=== PATIENT | male | born 1955 | race Caucasian/White ===

== ENCOUNTER 2016-07-08 16:43 | Emergency (ER) | payer OTHER ==
[~2016-07-08] VITALS: Ht 185.4 cm; Wt 155.6 kg
[~2016-07-08 16:43] MED LIST: ALBINS/ INH; METF-384 PO; POTA-327 PO
[2016-07-08 17:01] VITALS: TEMP 36.9; Ht 185.4 cm; Wt 155.6 kg
[2016-07-08] MEDS ORDERED: ASPIRIN 81 MG CHEW PO STA (17:43)
[2016-07-08] MEDS ORDERED: NITROGLYCERIN 0.4 MG SL PER TAB CHARGE SL PRN (17:45)
[2016-07-08 17:46] VITALS: O2SAT 96
--- NOTE | 2016-07-08 18:01 | DIAGNOSTIC IMAGING REPORT ---
CHEST ONE VIEW PORTABLE CLINICAL HISTORY: Evaluate Fever/Sepsis pain COMPARISON STUDY: 04/17/2016 FINDINGS: The bones soft tissues and hemidiaphragms are normal. The cardiomediastinal silhouette is normal. The lungs are clear. The pulmonary vasculature is normal. IMPRESSION: Negative chest. Electronically signed by: Casey Miguel M.D. 07/08/2016 5:59 PM Dictated Date/Time: 07/08/2016 5:59 PM
[2016-07-08 18:03] LABS: BASO % 0.2 %; BASO ABS # 0.02 K/uL (0-0.2); COMPLETE YES; EOS % 3.4 %; HEMATOCRIT 39.7 % (42-52); IG% 0.4 %; LYMPH % 31.1 %; MEAN CELL VOLUME 86.5 fL (80-100); MEAN CORPUSCULAR HEMOGLOBIN 30.7 pg (25-34); MEAN CORPUSCULAR HGB CONC 35.5 g/dl (32-36); MEAN PLATELET VOLUME 10.9 fL (7.4-10.4); MONO % 5.2 %; NEUT % 59.7 %; PLATELET COUNT 218 K/uL (130-400); RED BLOOD COUNT 4.59 M/uL (4.7-6.1)
[2016-07-08 18:13] LABS: INR 0.9 (0.9-1.1); PARTIAL THROMBOPLASTIN RATIO 1.1; PROTHROMBIN TIME (PATIENT) 10.1 SECONDS (9.0-12.0)
[2016-07-08 18:16] LABS: ALT/SGPT 31 U/L (12-78); BLOOD UREA NITROGEN 21 mg/dl (7-18); BUN/CREATININE RATIO 14.9 (10-20); CALCIUM 9.2 mg/dl (8.5-10.1); CARBON DIOXIDE 27 mmol/L (21-32); CHLORIDE 100 mmol/L (98-107); GLUCOSE 344 mg/dl (70-99); POTASSIUM 3.4 mmol/L (3.5-5.1); SODIUM 138 mmol/L (136-145)
[2016-07-08 18:19] LABS: ALKALINE PHOSPHATASE 122 U/L (45-117); AST/SGOT 15 U/L (15-37)
[2016-07-08 18:20] VITALS: BP 136/91; O2SAT 93
[2016-07-08 18:27] LABS: BETA-HYDROXYBUTYRATE 1.33 mg/dL (0.2-2.81); CKMB/CK RATIO 1.4 (0-3.0)
[2016-07-08] MEDS ORDERED: SODIUM CHLORIDE 0.9% 500ML 500 ML IV STA (18:47)
--- NOTE | 2016-07-08 19:02 | EMERGENCY ROOM VISIT NOTE ---
History Report prepared by Marianna: Bret Perez Under the Supervision of: Dr. Zain Welsh D.O. First contact with patient: 17:37 Chief Complaint: PALPITATIONS Stated Complaint: HEART PALPITATIONS, WASHED OUT FEELING Nursing Triage Summary: pt to the ED with palpitations and dizziness for 2 days hx CHF c/o weakness History of Present Illness The patient is a 60 year old male who presents to the Emergency Room with complaints of intermittent chest palpitations beginning a couple days prior to arrival. He currently rates his discomfort as an 8/10 in severity. The patient associates fatigue, chest tightness, shortness of breath, increased thirst, and diaphoresis with the episodes of palpitations with today's symptoms. He states his symptoms worsen with exertion. The patient notes his first episode today began at 0700 and lasted for 45 minutes, and he experienced a second episode at 1030 that lasted 30 minutes. He states he has a history of hypertension, gout, CHF, and diabetes. The patient notes he takes an 81 mg aspirin every morning. He denies a history of heart attacks or strokes. The patient denies any recent illness, as well. 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 Review of Systems See HPI for pertinent positives & negatives. A total of 10 systems reviewed and were otherwise negative. Past Medical & Surgical Medical Problems: (1) CHF (congestive heart failure) (2) Chronic low back pain (3) Diabetes mellitus, type II (4) Diverticular disease of colon (5) Dyslipidemia (6) GERD (gastroesophageal reflux disease) (7) Gout (8) HTN (hypertension) (9) Paroxysmal atrial fibrillation (10) PSVT (paroxysmal supraventricular tachycardia) Surgical Problems: (1) H/O ventral hernia repair (2) History of appendectomy (3) History of cardiac cath (4) History of partial colectomy Family History FHx: cancer FHx: gallbladder disease Hypertension Kidney disease Kidney stones Social History Smoking Status: Former Smoker Alcohol Use: none Drug Use: none Marital Status: Housing Status: lives with significant other Occupation Status: disabled Current/Historical Medications Scheduled Allopurinol (Zyloprim), 300 MG PO QPM Aspirin (Aspir-81), 1 TAB PO DAILY Furosemide (Lasix), 40 MG PO QAM Metformin Hcl (Glucophage), 1,000 MG PO AMPM Metoprolol Succinate (Toprol Xl), 50 MG PO DAILY Nitroglycerin (Nitrostat), 0.4 MG UT PRN Potassium Chloride (Micro-K Ext Rel), 10 MEQ PO QAM Scheduled PRN Albuterol Sulf (Proventil 0.083% 2.5MG/3ML), 2.5 MG INH Q6H PRN for Wheezing Allergies Coded Allergies: BEE STING (Verified Allergy, Severe, ANAPHYLAXIS, 02/26/16) Aluminum Hydroxide (Verified Adverse Reaction, Mild, VOMITING, 02/26/16) Magnesium Hydroxide (Verified Adverse Reaction, Mild, VOMITING, 02/26/16) Simethicone (Verified Adverse Reaction, Mild, VOMITING, 02/26/16) Physical Exam Vital Signs Date Time Temp Pulse Resp B/P Pulse Ox O2 Delivery O2 Flow Rate FiO2 07/08/16 18:20 90 17 136/91 93 Room Air 07/08/16 17:58 79 07/08/16 17:46 96 Room Air 07/08/16 17:44 95 Room Air 07/08/16 17:01 36.9 76 22 167/102 95 Physical Exam CONSTITUTIONAL/VITAL SIGNS: Reviewed / noted above. GENERAL: Non-toxic in appearance. INTEGUMENTARY: Warm, dry, and [place]. HEAD: Normocephalic. EYES: without scleral icterus or trauma. ENT/OROPHARYNX: clear and moist. LYMPHADENOPATHY/NECK: Is supple without lymphadenopathy or meningismus. RESPIRATORY: Lungs clear and equal. CARDIOVASCULAR: Regular rate and rhythm. GI/ABDOMEN: Soft and nontender. No organomegaly or pulsatile mass. No rebound or guarding. Normal bowel sounds. EXTREMITIES: Warm and well perfused. BACK: No CVA tenderness. NEUROLOGICAL: Intact without focal deficits. PSYCHIATRIC: normal affect. MUSCULOSKELETAL: Normally developed with good muscle tone. Medical Decision & Procedures ER Provider Diagnostic Interpretation: X ray results and stated below per my interpretation and radiology interpretation. CHEST ONE VIEW PORTABLE CLINICAL HISTORY: Evaluate Fever/Sepsis pain COMPARISON STUDY: 04/17/2016 FINDINGS: The bones soft tissues and hemidiaphragms are normal. The cardiomediastinal silhouette is normal. The lungs are clear. The pulmonary vasculature is normal. IMPRESSION: Negative chest. Electronically signed by: Casey Miguel M.D. 07/08/2016 5:59 PM Laboratory Results 07/08/16 17:40 Red Blood Count 4.59, Mean Corpuscular Volume 86.5, Mean Corpuscular Hemoglobin 30.7, Mean Corpuscular Hemoglobin Concent 35.5, Mean Platelet Volume 10.9, Neutrophils (%) (Auto) 59.7, Lymphocytes (%) (Auto) 31.1, Monocytes (%) (Auto) 5.2, Eosinophils (%) (Auto) 3.4, Basophils (%) (Auto) 0.2, Neutrophils # (Auto) 5.36, Lymphocytes # (Auto) 2.80, Monocytes # (Auto) 0.47, Eosinophils # (Auto) 0.31, Basophils # (Auto) 0.02 07/08/16 17:40 Test 07/08/16 17:40 07/08/16 17:43 White Blood Count 9.00 K/uL (4.8-10.8) Red Blood Count 4.59 M/uL (4.7-6.1) Hemoglobin 14.1 g/dL (14.0-18.0) Hematocrit 39.7 % (42-52) Mean Corpuscular Volume 86.5 fL (80-100) Mean Corpuscular Hemoglobin 30.7 pg (25-34) Mean Corpuscular Hemoglobin Concent 35.5 g/dl (32-36) Platelet Count 218 K/uL (130-400) Mean Platelet Volume 10.9 fL (7.4-10.4) Neutrophils (%) (Auto) 59.7 % Lymphocytes (%) (Auto) 31.1 % Monocytes (%) (Auto) 5.2 % Eosinophils (%) (Auto) 3.4 % Basophils (%) (Auto) 0.2 % Neutrophils # (Auto) 5.36 K/uL (1.4-6.5) Lymphocytes # (Auto) 2.80 K/uL (1.2-3.4) Monocytes # (Auto) 0.47 K/uL (0.11-0.59) Eosinophils # (Auto) 0.31 K/uL (0-0.5) Basophils # (Auto) 0.02 K/uL (0-0.2) RDW Standard Deviation 40.6 fL (36.4-46.3) RDW Coefficient of Variation 12.9 % (11.5-14.5) Immature Granulocyte % (Auto) 0.4 % Immature Granulocyte # (Auto) 0.04 K/uL (0.00-0.02) Prothrombin Time 10.1 SECONDS (9.0-12.0) Prothromb Time International Ratio 0.9 (0.9-1.1) Activated Partial Thromboplast Time 29.5 SECONDS (21.0-31.0) Partial Thromboplastin Ratio 1.1 D-Dimer 340 ug/L FEU (0-500) Anion Gap 11.0 mmol/L (3-11) Est Creatinine Clear Calc Drug Dose 86.3 ml/min Estimated GFR () 62.4 Estimated GFR (Non- 53.8 BUN/Creatinine Ratio 14.9 (10-20) Calcium Level 9.2 mg/dl (8.5-10.1) Total Bilirubin 0.3 mg/dl (0.2-1) Direct Bilirubin < 0.1 mg/dl (0-0.2) Aspartate Amino Transf (AST/SGOT) 15 U/L (15-37) Alanine Aminotransferase (ALT/SGPT) 31 U/L (12-78) Alkaline Phosphatase 122 U/L (45-117) Total Creatine Kinase 124 U/L (39-308) Creatine Kinase MB 1.7 ng/ml (0.5-3.6) Creatine Kinase MB Ratio 1.4 (0-3.0) Troponin I < 0.015 ng/ml (0-0.045) Total Protein 7.6 gm/dl (6.4-8.2) Albumin 3.4 gm/dl (3.4-5.0) Lipase 120 U/L (73-393) Beta-Hydroxybutyric Acid 1.33 mg/dL (0.2-2.81) Thyroid Stimulating Hormone (TSH) 1.380 uIu/ml (0.300-4.500) Laboratory results as stated above per my review. Medications Administered Medications (Trade) Dose Ordered Sig/Tish Route Start Time Stop Time Status Last Admin Dose Admin Aspirin (Aspirin Chew) 324 mg NOW STAT PO 07/08/16 17:43 07/08/16 17:45 DC 07/08/16 18:14 324 MG Nitroglycerin (Nitrostat Tab) 0.4 mg PRN PRN SL 07/08/16 17:45 3 17:44 07/08/16 18:13 0.4 MG ECG Indication: palpitations Rate (beats per minute): 73 Rhythm: normal sinus Findings: no ectopy, other (no acute injury) ED Course 173: Previous medical records were reviewed. The patient was evaluated in room C6. A complete history and physical examination was performed. 174: Ordered Aspirin 324 mg PO. 174: Ordered Nitrostat Tab 0.4 mg SL. 184: Ordered Sodium Chloride 500 ml @ 999 mls/hr IV. Medical Decision the differential was considered includes acute myocardial infarction, acute coronary syndrome, myocarditis, pericarditis, pericardial effusions /tamponad, esophageal perforation, thoracic aortic dissection, pulmonary embolism, pneumonia, pneumothorax, pancreatitis, shingles, acute cholecystitis, perforated abdominal viscus. This is a 60-year-old male who presents to the ED with a chief complaint of palpitations for the past couple days as well as some dizziness and sweatiness and near-syncope noted by the nurses. The patient has had the symptoms off and on. He states that "my gas tank is empty". He feels thirsty. He feels dehydrated. His palpitations occurred between 7 and 8 AM as well as between 10 and 11 AM. He also describes tightness in his chest and some shortness of breath. He has a history of hypertension. His vital signs reveal hypertension. He is afebrile. His physical exam was unremarkable. A chest x- ray was negative for acute disease. CBC is normal. Complete metabolic panel was unremarkable. The BUN is 21 and a glucose is 344. EKG shows a normal sinus rhythm. Cardiac enzymes, lipase and thyroid are normal. D-Dimer is normal. The patient was given a nitroglycerin here to see if that would help the pain. It did not. His symptoms do not appear to be cardiac in nature. The patient's primary symptoms are that that he feels rundown. The exact cause of this is unclear at this time. He was advised of dehydration likely related to his hyperglycemia. He was told to follow-up with his family doctor in 1-2 days for recheck. He is return for any worsening or new concerns. His symptoms could be related to a early viral illness. He was offered observation although no clear indication for admission was found. He declined this. He feels comfortable going home. Impression Primary Impression: Malaise and fatigue Scribe Attestation The scribe's documentation has been prepared under my direction and personally reviewed by me in its entirety. I confirm that the note above accurately reflects all work, treatment, procedures, and medical decision making performed by me. Departure Information Dispostion Home / Self-Care Referrals Adan Barker D.O. (PCP) Patient Instructions My [facility] Additional Instructions Contact your doctor for follow-up. Drink plenty of fluids and get rest. Monitor blood sugars if possible. Follow-up with your doctor for further care and evaluation in 1-2 days. Return to the emergency department for worsening or new symptoms or any concerns. You have been examined and treated today on an emergency basis only. This is not a substitute for, or an effort to provide, complete comprehensive medical care. It is impossible to recognize and treat all injuries or illnesses in a single emergency department visit. It is therefore important that you follow up closely with your doctor. Call as soon as possible for an appointment.
[2016-07-08 19:07] VITALS: PULSE 86
[2016-07-08 19:22] LABS: URINE APPEARANCE CLEAR (CLEAR); URINE BILIRUBIN NEG (NEG); URINE COLOR YELLOW; URINE NITRITE NEG (NEG); URINE PH 5.5 (4.5-7.5); URINE SPECIFIC GRAVITY 1.023 (1.000-1.030); UROBILINOGEN NEG (NEG)
[2016-07-08 19:29] LABS: MANUAL MICROSCOPIC REQUIRED? NO; REVIEW REQ? NO
== END 2016-07-08 19:20 | disposition home or self-care (01) ==
LOC: C.EDB 16:44 → C.EDC 19:20
DX: R53.81 Other malaise (principal); R53.83 Other fatigue; I50.9 Heart failure, unspecified; G89.29 Other chronic pain; E11.9 Type 2 diabetes mellitus without complications; E78.5 Hyperlipidemia, unspecified; K21.9 Gastro-esophageal reflux disease without esophagitis; I10 Essential (primary) hypertension; I48.0 Paroxysmal atrial fibrillation; M10.9 Gout, unspecified; Z87.891 Personal history of nicotine dependence; Z79.82 Long term (current) use of aspirin

== ENCOUNTER 2016-09-01 07:18 | Emergency (ER) | payer OTHER ==
[~2016-09-01] VITALS: Ht 185.4 cm; Wt 154.3 kg
[~2016-09-01 07:18] MED LIST changes: -POTA-327 PO
[2016-09-01 07:21] VITALS: TEMP 36.7; Ht 185.4 cm; Wt 154.3 kg
--- NOTE | 2016-09-01 07:42 | EMERGENCY ROOM VISIT NOTE ---
History First contact with patient: 07:24 Chief Complaint: NECK PAIN Stated Complaint: NECK PAIN History of Present Illness The patient is a 61 year old male who presents to the Emergency Room with complaints of left sided lateral neck pain and headache. The patient states that the pain started yesterday. The patient states that the pain causes him to be short of breath. He states that he feels dizziness. He states that the pain is rated as 6/10. He reports palpitations and mild chest pain. He reports shortness of breath. He does have a significant history of chronic shortness of breath and palpitations. He denies any pain in the posterior neck. He denies any pain, numbness, tingling, weakness in the upper or lower extremities. He denies any abdominal pain, nausea or vomiting. The patient has seen cardiology and had catheterization most recently in 2010. He has also had stress echocardiogram within the last one year which was normal. The patient reports a history of chronic neck pain and disc issues in his neck but states this pain feels different. Review of Systems A 10 system review of systems was completed with positives and pertinent negatives listed in the HPI. Past Medical/Surgical History Medical Problems: (1) CHF (congestive heart failure) (2) Chronic low back pain (3) Diabetes mellitus, type II (4) Diverticular disease of colon (5) Dyslipidemia (6) GERD (gastroesophageal reflux disease) (7) Gout (8) HTN (hypertension) (9) Paroxysmal atrial fibrillation (10) PSVT (paroxysmal supraventricular tachycardia) Surgical Problems: (1) H/O ventral hernia repair (2) History of appendectomy (3) History of cardiac cath (4) History of partial colectomy Family History FHx: cancer FHx: gallbladder disease Hypertension Kidney disease Kidney stones Social History Smoking Status: Former Smoker Alcohol Use: none Drug Use: none Marital Status: Housing Status: lives with significant other Occupation Status: disabled Current/Historical Medications Scheduled Allopurinol (Zyloprim), 300 MG PO QPM Aspirin (Aspir-81), 1 TAB PO DAILY Furosemide (Lasix), 40 MG PO QAM Insulin Aspart 70/30 (Novolog Mix 70/30), 30 UNITS SC BID Metoprolol Succinate (Toprol Xl), 50 MG PO QPM Nitroglycerin (Nitrostat), 0.4 MG UT PRN Potassium Chloride (Micro-K Ext Rel), 10 MEQ PO QAM Allergies Coded Allergies: BEE STING (Verified Allergy, Severe, ANAPHYLAXIS, 09/01/16) Aluminum Hydroxide (Verified Adverse Reaction, Mild, VOMITING, 09/01/16) Magnesium Hydroxide (Verified Adverse Reaction, Mild, VOMITING, 09/01/16) Simethicone (Verified Adverse Reaction, Mild, VOMITING, 09/01/16) Physical Exam Vital Signs Date Time Temp Pulse Resp B/P Pulse Ox O2 Delivery O2 Flow Rate FiO2 09/01/16 09:54 65 16 139/86 96 Room Air 09/01/16 09:02 67 20 143/84 98 Room Air 09/01/16 07:21 36.7 81 20 136/88 96 Room Air Physical Exam VITALS: Vitals are noted on the nurse's note and reviewed by myself. Vital signs stable. Patient is afebrile. He is not tachycardic. or hypoxic. GENERAL:This is an obese 61-year-old male, in no acute distress, nondiaphoretic , well-developed well-nourished. SKIN: The skin was without rashes, erythema, edema, or bruising. There is no tenting of the skin. Capillary reflex less than 2 seconds. HEAD: Normocephalic atraumatic. EARS: External auditory canals clear, tympanic membranes pearly ritter without erythema or effusion bilaterally. EYES: Pupils equal round and reactive to light and accommodation. Conjunctivae without injection, sclerae without icterus. Extraocular movements intact. NOSE: Patent, turbinates without inflammation or discharge. MOUTH: Mucous membranes moist. Tonsils are not enlarged. Pharynx without erythema or exudate. Uvula midline. Airway patent. Tongue does not deviate. NECK: Supple without nuchal rigidity. No lymphadenopathy. No thyromegaly. No JVD. There are no obvious carotid bruits to auscultation. HEART: Heart sounds distant. Regular rate and rhythm without murmurs gallops or rubs. LUNGS: Clear to auscultation bilaterally without wheezes, rales or rhonchi. No retractions or accessory muscle use. ABDOMEN: Positive bowel sounds x 4. Soft, nontender, without masses or organomegaly. MUSCULOSKELETAL: No muscle atrophy, erythema, or edema noted. Full range of motion without joint tenderness in all extremities. Normal gait. Strength 5/5 throughout. NEURO: Patient was alert and oriented to person place and time. Cranial nerves II through XII grossly intact. Finger to nose intact. Negative pronator drift. Heel gardner testing intact. No focal neurological deficits. Medical Decision & Procedures ER Provider Diagnostic Interpretation: [~ rep ct add3]] NECK CTA HISTORY: Headache with left-sided neck pain. TECHNIQUE: Multiaxial CT images of the neck were performed following the intravenous administration of contrast to evaluate the major cervical vessels. Maximum intensity projection images were also obtained. All measurements were calculated based on NASCET criteria. COMPARISON STUDY: None. FINDINGS: The aortic arch and proximal great vessels are widely patent. There is no significant stenosis, occlusion, or dissection identified within the bilateral common carotid, internal carotid, or vertebral arteries. Small retention cysts within the right maxillary sinus. No cervical lymphadenopathy. The internal jugular veins are patent. IMPRESSION: No significant stenosis, occlusion, or dissection identified within the carotid or vertebral arteries. [~ rep ct add3]] CHEST ONE VIEW PORTABLE CLINICAL HISTORY: chest pain dyspnea COMPARISON STUDY: 07/08/2016 FINDINGS: Mild stable cardia megaly. Moderate prominence pulmonary vasculature. Diaphragms smooth. Costophrenic angles are sharp. IMPRESSION: Mild stable cardiomegaly. [~ rep ct add3]] HEAD CTA HISTORY: Headache headache left sided neck pain TECHNIQUE: Multiaxial CT images of the head were performed both before and after the intravenous administration of contrast to evaluate the major cerebral vessels. Maximum intensity projection images were also obtained. COMPARISON: None. FINDINGS: There is no mass, hematoma, midline shift, or acute infarct. Visualized intracranial internal carotid arteries, distal vertebral arteries, and basilar artery are widely patent. There is no significant stenosis, occlusion, or aneurysm seen within the bilateral ACAs, MCAs, or fish liver sorter. IMPRESSION: No significant stenosis, occlusion, or aneurysm within the [place]. Negative unenhanced CT scan of the brain Laboratory Results 09/01/16 07:45 Red Blood Count 4.36, Mean Corpuscular Volume 86.5, Mean Corpuscular Hemoglobin 30.3, Mean Corpuscular Hemoglobin Concent 35.0, Mean Platelet Volume 10.4, Neutrophils (%) (Auto) 57.8, Lymphocytes (%) (Auto) 32.6, Monocytes (%) (Auto) 5.3, Eosinophils (%) (Auto) 3.3, Basophils (%) (Auto) 0.3, Neutrophils # (Auto) 4.05, Lymphocytes # (Auto) 2.28, Monocytes # (Auto) 0.37, Eosinophils # (Auto) 0.23, Basophils # (Auto) 0.02 09/01/16 07:45 Test 09/01/16 07:45 09/01/16 07:48 White Blood Count 7.00 K/uL (4.8-10.8) Red Blood Count 4.36 M/uL (4.7-6.1) Hemoglobin 13.2 g/dL (14.0-18.0) Hematocrit 37.7 % (42-52) Mean Corpuscular Volume 86.5 fL (80-100) Mean Corpuscular Hemoglobin 30.3 pg (25-34) Mean Corpuscular Hemoglobin Concent 35.0 g/dl (32-36) Platelet Count 223 K/uL (130-400) Mean Platelet Volume 10.4 fL (7.4-10.4) Neutrophils (%) (Auto) 57.8 % Lymphocytes (%) (Auto) 32.6 % Monocytes (%) (Auto) 5.3 % Eosinophils (%) (Auto) 3.3 % Basophils (%) (Auto) 0.3 % Neutrophils # (Auto) 4.05 K/uL (1.4-6.5) Lymphocytes # (Auto) 2.28 K/uL (1.2-3.4) Monocytes # (Auto) 0.37 K/uL (0.11-0.59) Eosinophils # (Auto) 0.23 K/uL (0-0.5) Basophils # (Auto) 0.02 K/uL (0-0.2) RDW Standard Deviation 41.2 fL (36.4-46.3) RDW Coefficient of Variation 12.9 % (11.5-14.5) Immature Granulocyte % (Auto) 0.7 % Immature Granulocyte # (Auto) 0.05 K/uL (0.00-0.02) Prothrombin Time 10.4 SECONDS (9.0-12.0) Prothromb Time International Ratio 1.0 (0.9-1.1) Activated Partial Thromboplast Time 30.8 SECONDS (21.0-31.0) Partial Thromboplastin Ratio 1.2 Est Creatinine Clear Calc Drug Dose 118.8 ml/min Estimated GFR () 93.1 Estimated GFR (Non- 80.3 BUN/Creatinine Ratio 16.4 (10-20) Calcium Level 8.7 mg/dl (8.5-10.1) Total Bilirubin 0.4 mg/dl (0.2-1) Aspartate Amino Transf (AST/SGOT) 19 U/L (15-37) Alanine Aminotransferase (ALT/SGPT) 28 U/L (12-78) Alkaline Phosphatase 104 U/L (45-117) Total Creatine Kinase 150 U/L (39-308) Creatine Kinase MB 1.9 ng/ml (0.5-3.6) Creatine Kinase MB Ratio 1.3 (0-3.0) Troponin I < 0.015 ng/ml (0-0.045) Total Protein 7.2 gm/dl (6.4-8.2) Albumin 3.3 gm/dl (3.4-5.0) Globulin 3.9 gm/dl (2.5-4.0) Albumin/Globulin Ratio 0.8 (0.9-2) Beta-Hydroxybutyric Acid 0.89 mg/dL (0.2-2.81) Bedside Hemoglobin 13.6 g/dl (14.0-18.0) Bedside Hematocrit 40 % (42-52) Bedside D-Dimer 158 ng/mlFEU (0-450) Bedside Sodium 138 mEq/L (135-144) Bedside Potassium 3.6 mEq/L (3.3-5.0) Bedside Chloride 100 mEq/L (101-112) Bedside Total CO2 23 mEq/l (24-31) Anion Gap 20.0 mmol/L (16-25) Bedside Blood Urea Nitrogen 16 mg/dl (7-18) Bedside Creatinine 0.7 mg/dl (0.6-1.3) Bedside Glucose (other) 341 mg/dl (70-99) Bedside Ionized Calcium ([place]) 1.19 mmol/l (1.12-1.32) Bedside Troponin I 0.000 ng/ml (0-0.045) Medications Administered Medications (Trade) Dose Ordered Sig/Tish Route Start Time Stop Time Status Last Admin Dose Admin Morphine Sulfate (MoRPHine SULFATE INJ) 6 mg NOW STAT IV 09/01/16 07:44 09/01/16 07:45 DC 09/01/16 07:59 6 MG Procedure The patient was monitored on a washer blanket. They maintained a normal sinus rhythm without ectopy. ECG Indication: chest pain Rate (beats per minute): 73 Rhythm: normal sinus Findings: no acute ischemic change, other (incomplete right bundle-branch block ) Change: no significant change ED Course The patient was seen and examined. Previous visits were reviewed. The patient does not have a fever or leukocytosis. He does not have any significant electrolyte abnormalities. Troponin was not elevated. Glucose was elevated at 341. The patient is a diabetic. D-dimer was not elevated. INR was 1.0. Chest x-ray does not reveal any obvious abnormality CTA of the brain and neck were obtained and do not reveal any obvious vascular abnormality He was given 6 mg IV morphine with improvement in his pain The patient presents emergency Department with left-sided neck pain. The pain is worse with palpation. He underwent the above evaluation. There does not appear to be any carotid stenosis, aneurysm or dissection. The patient does have chronic shortness of breath, palpitations and chest pain. There may be some degree of underlying anxiety. The patient may have a sternocleidomastoid muscle strain. However, she should follow closely with his family doctor for further evaluation and management. He should return immediately with any chest pain, trouble breathing, numbness, tingling, weakness in the extremities. The patient was also seen and examined by who agrees with the assessment and treatment plan. Medical Decision DIFFERENTIAL DIAGNOSIS: Aortic dissection, myocarditis, pericarditis, cervical disc disease, costochondritis, herpes zoster, rib fracture, pleuritis, pneumonia , pulmonary embolus, tension pneumothorax, anxiety disorder, somatoform disorder , choledocholithiasis, status, esophagitis, esophageal spasm, esophageal reflux , esophageal rupture, pancreatitis, peptic ulcer disease, cardiac ischemia, ST elevation [place], acute coronary syndrome, arrhythmia, coronary artery vasospasm. vavular heart disease, coronary artery disease, among others. Impression Primary Impression: Neck pain Additional Impressions: Strain of sternocleidomastoid muscle Headache Departure Information Dispostion Home / Self-Care Condition GOOD Referrals Adan Barker D.O. (PCP) Patient Instructions My [facility] Additional Instructions Contact your family doctor today for a follow-up appointment later this week Return with any numbness, tingling, weakness, chest pain or generalized worsening symptoms Problem Qualifiers Additional Impressions: Strain of sternocleidomastoid muscle Encounter type: initial encounter Qualified Codes: S16.1XXA - Strain of muscle, fascia and tendon at neck level, initial encounter
[2016-09-01] MEDS ORDERED: MoRPHine SULFATE 10 MG/ML CARP/VIAL IV STA (07:44)
[2016-09-01] MEDS ORDERED: OPTIRAY 320 IV PRN (07:45)
[2016-09-01] MEDS ORDERED: NVLGI7030 SC (07:46)
--- NOTE | 2016-09-01 07:53 | EMERGENCY ROOM VISIT NOTE ---
ED Visit Note First contact with patient: 07:24 This Patient was discussed with the physician asset protection assistant, Dolly Kennedy PA-C. The pertinent historical and physical exam findings were confirmed. I agree with the studies ordered and with the interpretations of these studies. I agree with the disposition and care plan.
[2016-09-01 08:02] LABS: ISTAT CREATININE 0.7 mg/dl (0.6-1.3); ISTAT HEMOGLOBIN 13.6 g/dl (14.0-18.0); ISTAT IONIZED CALCIUM 1.19 mmol/l (1.12-1.32)
[2016-09-01 08:06] LABS: BASO % 0.3 %; BASO ABS # 0.02 K/uL (0-0.2); COMPLETE YES; EOS % 3.3 %; HEMATOCRIT 37.7 % (42-52); IG% 0.7 %; LYMPH % 32.6 %; LYMPH ABS # 2.28 K/uL (1.2-3.4); MEAN CELL VOLUME 86.5 fL (80-100); MEAN CORPUSCULAR HEMOGLOBIN 30.3 pg (25-34); MEAN PLATELET VOLUME 10.4 fL (7.4-10.4); MONO % 5.3 %; NEUT % 57.8 %; PLATELET COUNT 223 K/uL (130-400); RED BLOOD COUNT 4.36 M/uL (4.7-6.1)
--- NOTE | 2016-09-01 08:12 | DIAGNOSTIC IMAGING REPORT ---
CHEST ONE VIEW PORTABLE CLINICAL HISTORY: chest pain dyspnea COMPARISON STUDY: 07/08/2016 FINDINGS: Mild stable cardia megaly. Moderate prominence pulmonary vasculature. Diaphragms smooth. Costophrenic angles are sharp. IMPRESSION: Mild stable cardiomegaly. Electronically signed by: Casey Miguel M.D. 09/01/2016 8:10 AM Dictated Date/Time: 09/01/2016 8:10 AM
[2016-09-01 08:16] LABS: PARTIAL THROMBOPLASTIN RATIO 1.2; PROTHROMBIN TIME (PATIENT) 10.4 SECONDS (9.0-12.0)
[2016-09-01] MEDS ORDERED: ALLO300T2 PO (08:22)
[2016-09-01 08:24] LABS: ALT/SGPT 28 U/L (12-78); BLOOD UREA NITROGEN 16 mg/dl (7-18); BUN/CREATININE RATIO 16.4 (10-20); CALCIUM 8.7 mg/dl (8.5-10.1); CARBON DIOXIDE 27 mmol/L (21-32); CHLORIDE 102 mmol/L (98-107); GLUCOSE 341 mg/dl (70-99); POTASSIUM 3.5 mmol/L (3.5-5.1); SODIUM 138 mmol/L (136-145)
[2016-09-01 08:26] LABS: ALB/GLOB RATIO 0.8 (0.9-2); AST/SGOT 19 U/L (15-37)
[2016-09-01 08:33] LABS: ALKALINE PHOSPHATASE 104 U/L (45-117); BETA-HYDROXYBUTYRATE 0.89 mg/dL (0.2-2.81); CKMB/CK RATIO 1.3 (0-3.0)
--- NOTE | 2016-09-01 09:04 | DIAGNOSTIC IMAGING REPORT ---
HEAD CTA HISTORY: Headache headache left sided neck pain TECHNIQUE: Multiaxial CT images of the head were performed both before and after the intravenous administration of contrast to evaluate the major cerebral vessels. Maximum intensity projection images were also obtained. COMPARISON: None. FINDINGS: There is no mass, hematoma, midline shift, or acute infarct. Visualized intracranial internal carotid arteries, distal vertebral arteries, and basilar artery are widely patent. There is no significant stenosis, occlusion, or aneurysm seen within the bilateral ACAs, MCAs, or family services worker. IMPRESSION: No significant stenosis, occlusion, or aneurysm within the [place]. Negative unenhanced CT scan of the brain Electronically signed by: Casey Miguel M.D. 09/01/2016 9:03 AM Dictated Date/Time: 09/01/2016 8:59 AM
--- NOTE | 2016-09-01 09:07 | DIAGNOSTIC IMAGING REPORT ---
NECK CTA HISTORY: Headache with left-sided neck pain. TECHNIQUE: Multiaxial CT images of the neck were performed following the intravenous administration of contrast to evaluate the major cervical vessels. Maximum intensity projection images were also obtained. All measurements were calculated based on NASCET criteria. COMPARISON STUDY: None. FINDINGS: The aortic arch and proximal great vessels are widely patent. There is no significant stenosis, occlusion, or dissection identified within the bilateral common carotid, internal carotid, or vertebral arteries. Small retention cysts within the right maxillary sinus. No cervical lymphadenopathy. The internal jugular veins are patent. IMPRESSION: No significant stenosis, occlusion, or dissection identified within the carotid or vertebral arteries. Electronically signed by: Roland Barnard M.D. 09/01/2016 9:05 AM Dictated Date/Time: 09/01/2016 9:01 AM
[2016-09-01 09:54] VITALS: BP 139/86; PULSE 65; O2SAT 96
[2016-09-01] MEDS ORDERED: FRS/40 PO (10:05)
[2016-09-01] MEDS ORDERED: ASPI-232 PO (11:57)
[2016-09-01] MEDS ORDERED: NTRGSL/4 UT (13:37)
[2016-09-01] MEDS ORDERED: POTA10CA28 PO (18:22)
[2016-09-01] MEDS ORDERED: METO-217 PO (22:05)
[2017-04-13] MEDS ORDERED: ALBINS/ INH (14:00)
[2017-04-13] MEDS ORDERED: VNTHFA/IN INH (14:00)
== END 2016-09-01 10:07 | disposition home or self-care (01) ==
LOC: C.EDB 07:19
DX: S16.1XXA Strain of muscle, fascia and tendon at neck level, initial encounter (principal); X58.XXXA Exposure to other specified factors, initial encounter; I50.9 Heart failure, unspecified; E11.9 Type 2 diabetes mellitus without complications; E78.5 Hyperlipidemia, unspecified; K21.9 Gastro-esophageal reflux disease without esophagitis; I10 Essential (primary) hypertension; I48.0 Paroxysmal atrial fibrillation; Z87.891 Personal history of nicotine dependence; Z79.82 Long term (current) use of aspirin; Z79.4 Long term (current) use of insulin

== ENCOUNTER 2017-03-01 18:25 | Emergency (ER) | payer OTHER ==
[~2017-03-01] VITALS: Ht 185.4 cm; Wt 158.0 kg
[~2017-03-01 18:25] MED LIST changes: -ALBINS/ INH; +ALLO300T2 PO; +ASPI-232 PO; +FRS/40 PO; -METF-384 PO; +METO-217 PO; +NTRGSL/4 UT; +NVLGI7030 SC; +POTA10CA28 PO
[2017-03-01 18:26] VITALS: TEMP 36.7; Ht 185.4 cm; Wt 158.0 kg
[2017-03-01] MEDS ORDERED: ONDANSETRON INJ 2 MG/ML 2 ML VIAL IV STA (18:34)
--- NOTE | 2017-03-01 18:56 | EMERGENCY ROOM VISIT NOTE ---
History Report prepared by Marianna: Livia Joseph Under the Supervision of: Maldonado RiojasO. First contact with patient: 18:29 Chief Complaint: ABDOMINAL PAIN Stated Complaint: FEELS THOUGH TORE SOMETHING IN ABD History of Present Illness The patient is a 61 year old male who presents to the Emergency Room with complaints of constant diffuse abdominal pain beginning this afternoon. The patient states that he was moving a box around lunchtime. He had the box on a hand truck and went to step up. When he pulled the box up he states, "It felt like the bottom of my stomach ripped." He has had diffuse lower abdominal pain since that time. He feels bloated and his abdomen feels tight. The patient reports a loss of appetite. He rates his pain as a 6/10 in severity. He is also complaining of shortness of breath. He denies fevers, chills, nausea, vomiting, diarrhea, and constipation. He has had several hernia repairs in the past. Source of History: patient Onset: this afternoon Position: abdomen (lower) Symptom Intensity: 6/10 Quality: other (bloated and tight) Timing: constant Modifying Factors (Worsening): other (heavy lifting) Associated Symptoms: No fevers, No chills, No SOB, No nausea, No vomiting, No diarrhea Review of Systems See HPI for pertinent positives & negatives. A total of 10 systems reviewed and were otherwise negative. Past Medical & Surgical Medical Problems: (1) CHF (congestive heart failure) (2) Chronic low back pain (3) Diabetes mellitus, type II (4) Diverticular disease of colon (5) Dyslipidemia (6) GERD (gastroesophageal reflux disease) (7) Gout (8) HTN (hypertension) (9) Paroxysmal atrial fibrillation (10) PSVT (paroxysmal supraventricular tachycardia) Surgical Problems: (1) H/O ventral hernia repair (2) History of appendectomy (3) History of cardiac cath (4) History of partial colectomy Family History FHx: cancer FHx: gallbladder disease Hypertension Kidney disease Kidney stones Social History Smoking Status: Former Smoker Alcohol Use: none Drug Use: none Marital Status: Housing Status: lives with significant other Occupation Status: disabled Current/Historical Medications Scheduled Allopurinol (Zyloprim), 300 MG PO QPM Furosemide (Lasix), 40 MG PO QAM Insulin Aspart 70/30 (Novolog Mix 70/30), 35 UNITS SC BID Lisinopril/Hctz (Zestoretic 20MG/12.5MG), 1 TAB PO DAILY Metoprolol Succinate (Toprol Xl), 50 MG PO QPM Nitroglycerin (Nitrostat), 0.4 MG UT PRN Allergies Coded Allergies: BEE STING (Verified Allergy, Severe, ANAPHYLAXIS, 03/01/17) Aluminum Hydroxide (Verified Adverse Reaction, Mild, VOMITING, 03/01/17) Magnesium Hydroxide (Verified Adverse Reaction, Mild, VOMITING, 03/01/17) Simethicone (Verified Adverse Reaction, Mild, VOMITING, 03/01/17) Physical Exam Vital Signs Date Time Temp Pulse Resp B/P (MAP) Pulse Ox O2 Delivery O2 Flow Rate FiO2 03/01/17 20:50 73 20 140/81 94 Room Air 03/01/17 20:00 74 20 141/83 97 Room Air 03/01/17 19:20 84 03/01/17 18:26 36.7 91 22 136/77 95 Room Air Physical Exam GENERAL: Patient is awake, alert, very anxious and uncomfortable appearing. EYES: The conjunctivae are clear. The pupils are round and reactive. EARS, NOSE, MOUTH AND THROAT: The nose is without any evidence of any deformity. Mucous membranes are moist tongue is midline NECK: The neck is nontender and supple. RESPIRATORY: Normal respiratory effort is noted, diminished at bases, scant rales at both bases. CARDIOVASCULAR: Regular rate and rhythm noted there no murmurs rubs or gallops normal S1 normal S2 GASTROINTESTINAL: The abdomen is soft, moderately, diffusely tender. Guarding in suprapubic and periumbilical region. Due to body habitus, difficult to identify a definite hernia. MUSCULOSKELETAL/EXTREMITIES: There is no evidence of gross deformity full range of motion is noted in the hips and shoulders SKIN: Pedal edema bilaterally. There is no obvious evidence of any rash. There are no petechiae, pallor or cyanosis noted. NEUROLOGIC: Patient is awake alert and oriented x3 Medical Decision & Procedures ER Provider Diagnostic Interpretation: Radiology results as stated below per my review and radiologist interpretation: CHEST ONE VIEW PORTABLE HISTORY: 61 years-old Male ABDOMINAL PAIN/GI acute generalized abdominal pain. COMPARISON: Chest radiograph 09/01/2016 TECHNIQUE: Portable upright AP view of the chest FINDINGS: Cardiac silhouette is mildly enlarged, unchanged. No pneumothorax, pleural effusion or focal airspace consolidation. Subsegmental left basilar atelectasis. Bones are grossly intact. Degenerative changes involve the bilateral shoulders and spine. IMPRESSION: Subsegmental left basilar atelectasis without acute cardiopulmonary process. The above report was generated using voice recognition software. It may contain grammatical, syntax or spelling errors. Electronically signed by: Donny Clark M.D. 03/01/2017 7:12 PM Dictated Date/Time: 03/01/2017 7:11 PM ABD/PELVIS NO IV OR ORAL CONT HISTORY: 61 years-old Male pain acute generalized abdominal pain COMPARISON: CT 10/17/2015 TECHNIQUE: Multiple axial CT images of the abdomen and pelvis were obtained without contrast. A dose lowering technique was used consistent with the principals of BLANCA. FINDINGS: Minimal dependent bibasilar atelectasis. No pneumoperitoneum inferior cardiac chambers are unremarkable. Hepatomegaly with hepatic steatosis redemonstrated. Gallbladder, spleen, pancreas and right adrenal gland are unremarkable. 1.4 x 1.1 cm left adrenal adenoma is unchanged. Bilateral nonspecific perinephric limited or stranding is redemonstrated in addition to bilateral nephrolithiasis. Largest calculus on the right measures 4 mm and the largest in the left measures 2 mm. No ureteral calculi or hydronephrosis identified. Urinary bladder is partially collapsed. Prostate is unremarkable. Abdominal aorta is normal in course and caliber without aneurysm. No bulky adenopathy identified. Small duodenal diverticulum. No bowel obstruction or focal bowel wall thickening. Prior sigmoid colon resection with colocolonic anastomosis. Prior appendectomy. Prior ventral abdominal wall hernia repair. Bones appear intact. Facet arthropathy involves the lumbar spine, mild to moderate. IMPRESSION: 1. Bilateral nephrolithiasis redemonstrated without ureteral calculi or hydronephrosis. 2. Hepatomegaly with hepatic steatosis redemonstrated. 3.Prior sigmoid colon resection with colocolonic anastomosis. 4. Prior appendectomy. The above report was generated using voice recognition software. It may contain grammatical, syntax or spelling errors. Electronically signed by: Donny Clark M.D. 03/01/2017 8:00 PM Dictated Date/Time: 03/01/2017 7:55 PM Laboratory Results 03/01/17 19:00 Red Blood Count 4.73, Mean Corpuscular Volume 87.5, Mean Corpuscular Hemoglobin 29.8, Mean Corpuscular Hemoglobin Concent 34.1, Mean Platelet Volume 10.4, Neutrophils (%) (Auto) 62.7, Lymphocytes (%) (Auto) 28.6, Monocytes (%) (Auto) 5.6, Eosinophils (%) (Auto) 2.1, Basophils (%) (Auto) 0.3, Neutrophils # (Auto) 7.39, Lymphocytes # (Auto) 3.38, Monocytes # (Auto) 0.66, Eosinophils # (Auto) 0.25, Basophils # (Auto) 0.04 03/01/17 19:00 Test 03/01/17 19:00 03/01/17 19:11 03/01/17 19:15 White Blood Count 11.80 K/uL (4.8-10.8) Red Blood Count 4.73 M/uL (4.7-6.1) Hemoglobin 14.1 g/dL (14.0-18.0) Hematocrit 41.4 % (42-52) Mean Corpuscular Volume 87.5 fL (80-100) Mean Corpuscular Hemoglobin 29.8 pg (25-34) Mean Corpuscular Hemoglobin Concent 34.1 g/dl (32-36) Platelet Count 257 K/uL (130-400) Mean Platelet Volume 10.4 fL (7.4-10.4) Neutrophils (%) (Auto) 62.7 % Lymphocytes (%) (Auto) 28.6 % Monocytes (%) (Auto) 5.6 % Eosinophils (%) (Auto) 2.1 % Basophils (%) (Auto) 0.3 % Neutrophils # (Auto) 7.39 K/uL (1.4-6.5) Lymphocytes # (Auto) 3.38 K/uL (1.2-3.4) Monocytes # (Auto) 0.66 K/uL (0.11-0.59) Eosinophils # (Auto) 0.25 K/uL (0-0.5) Basophils # (Auto) 0.04 K/uL (0-0.2) RDW Standard Deviation 41.8 fL (36.4-46.3) RDW Coefficient of Variation 13.0 % (11.5-14.5) Immature Granulocyte % (Auto) 0.7 % Immature Granulocyte # (Auto) 0.08 K/uL (0.00-0.02) Prothrombin Time 10.7 SECONDS (9.0-12.0) Prothromb Time International Ratio 1.0 (0.9-1.1) Activated Partial Thromboplast Time 29.2 SECONDS (21.0-31.0) Partial Thromboplastin Ratio 1.1 Anion Gap 9.0 mmol/L (3-11) Est Creatinine Clear Calc Drug Dose 92.6 ml/min Estimated GFR () 67.8 Estimated GFR (Non- 58.5 BUN/Creatinine Ratio 14.4 (10-20) Calcium Level 9.7 mg/dl (8.5-10.1) Total Bilirubin 0.3 mg/dl (0.2-1) Direct Bilirubin < 0.1 mg/dl (0-0.2) Aspartate Amino Transf (AST/SGOT) 14 U/L (15-37) Alanine Aminotransferase (ALT/SGPT) 22 U/L (12-78) Alkaline Phosphatase 83 U/L (45-117) Total Creatine Kinase 235 U/L (39-308) Creatine Kinase MB 3.6 ng/ml (0.5-3.6) Creatine Kinase MB Ratio 1.5 (0-3.0) Troponin I < 0.015 ng/ml (0-0.045) Pro-B-Type Natriuretic Peptide 26 pg/ml (0-900) Total Protein 7.8 gm/dl (6.4-8.2) Albumin 3.8 gm/dl (3.4-5.0) Lipase 86 U/L (73-393) Bedside Lactic Acid Venous 0.94 mmol/L (0.90-1.70) Urine Color DK YELLOW Urine Appearance CLEAR (CLEAR) Urine pH 5.0 (4.5-7.5) Urine Specific [place] 1.025 (1.000-1.030) Urine Protein NEG (NEG) Urine Glucose (UA) NEG (NEG) Urine Ketones TRACE (NEG) Urine Occult Blood NEG (NEG) Urine Nitrite NEG (NEG) Urine Bilirubin NEG (NEG) Urine Urobilinogen NEG (NEG) Urine Leukocyte Esterase NEG (NEG) Laboratory results per my review. Medications Administered Medications (Trade) Dose Ordered Sig/Tish Route Start Time Stop Time Status Last Admin Dose Admin Ondansetron HCl (Zofran Inj) 4 mg NOW STAT IV 03/01/17 18:34 03/01/17 18:36 DC 03/01/17 19:10 4 MG Morphine Sulfate (MoRPHine SULFATE INJ) 4 mg Q15M PRN IV 03/01/17 18:45 03/01/17 21:11 DC 03/01/17 20:05 4 MG Ondansetron HCl (ZOFRAN ODT 4MG Home Pack) 1 homepack UD ONCE PO 03/01/17 20:30 03/01/17 20:31 DC 03/01/17 20:50 1 HOMEPACK Oxycodone HCl (Roxicodone Immediate Rel 5MG Home Pack) 1 homepack UD ONCE PO 03/01/17 20:30 03/01/17 20:31 DC 03/01/17 20:50 1 HOMEPACK ECG Indication: abdominal pain Rate (beats per minute): 80 Rhythm: normal sinus Findings: no acute ischemic change, no ectopy Comparison ECG Date: 09/01/16 Change: no significant change ED Course 1828: The patient was evaluated in room C10. A complete history and physical examination were performed. 1833: Zofran 4 mg IV 1844: Morphine sulfate 4 mg IV - PRN 2026: I reassessed the patient at this time. He is feeling better and resting comfortably. I discussed the results and treatment plan with the patient. I answered all pertaining questions that he had. He expressed understanding and verbalized agreement. The patient will be discharged home. 2030: Oxycodone HCl 1 homepack PO, Zofran 4 mg PO 1 homepack. Medical Decision Differential diagnosis: Etiologies such as appendicitis, diverticulitis, PUD, biliary pathology, UTI, pancreatitis, obstruction, mesenteric ischemia, aortic pathology, infections, inflammatory bowel disease, renal colic, as well as others were entertained. Nursing notes reviewed. The patient is a 61-year-old male who presented to the emergency department for an evaluation of significant lower abdominal tenderness. The patient states that he was doing heavy lifting when he felt a tearing sensation in his lower abdomen. Because of his size it was difficult to evaluate for hernia so CT abdomen and pelvis was obtained. I discussed the patient's laboratory and radiographic studies with him. He was treated with IV pain medication and IV antiemetics. On subsequent reevaluation he was feeling much better. At this time I feel this is likely consistent with a muscle injury to the abdominal wall. For this reason he was told to start taking a laxative especially if he was going to take strong pain medication. He was encouraged to follow-up with his primary care physician as soon as possible. He was also encouraged to rest and avoid any strenuous activities and return to the emergency department immediately if symptoms change worsen or the need arises. Medication Reconcilliation Current Medication List: was personally reviewed by me Blood Pressure Screening Patient's blood pressure: Normal blood pressure Impression Primary Impression: Lower abdominal pain Additional Impression: Abdominal wall pain Scribe Attestation The scribe's documentation has been prepared under my direction and personally reviewed by me in its entirety. I confirm that the note above accurately reflects all work, treatment, procedures, and medical decision making performed by me. Departure Information Dispostion Home / Self-Care Referrals Adan Barker D.O. (PCP) Forms HOME CARE DOCUMENTATION FORM, IMPORTANT VISIT INFORMATION Patient Instructions ED Abdominal Pain Unkn Cause Male, My [facility] Additional Instructions Call your family in the morning to schedule a follow-up appointment. Rest and avoid any strenuous activity. Continue all medications as prescribed. Return to the emergency department immediately if symptoms change worsen or the need arises. Problem Qualifiers
[2017-03-01] MEDS: MoRPHine SULFATE 4 MG/ML 1 ML CARP\\VIAL IV PRN ×2 (19:10→20:05)
--- NOTE | 2017-03-01 19:13 | DIAGNOSTIC IMAGING REPORT ---
CHEST ONE VIEW PORTABLE HISTORY: 61 years-old Male ABDOMINAL PAIN/GI acute generalized abdominal pain. COMPARISON: Chest radiograph 09/01/2016 TECHNIQUE: Portable upright AP view of the chest FINDINGS: Cardiac silhouette is mildly enlarged, unchanged. No pneumothorax, pleural effusion or focal airspace consolidation. Subsegmental left basilar atelectasis. Bones are grossly intact. Degenerative changes involve the bilateral shoulders and spine. IMPRESSION: Subsegmental left basilar atelectasis without acute cardiopulmonary process. The above report was generated using voice recognition software. It may contain grammatical, syntax or spelling errors. Electronically signed by: Donny Clark M.D. 03/01/2017 7:12 PM Dictated Date/Time: 03/01/2017 7:11 PM
[2017-03-01 19:17] LABS: BASO % 0.3 %; BASO ABS # 0.04 K/uL (0-0.2); COMPLETE YES; EOS % 2.1 %; HEMATOCRIT 41.4 % (42-52); IG% 0.7 %; LYMPH % 28.6 %; LYMPH ABS # 3.38 K/uL (1.2-3.4); MEAN CELL VOLUME 87.5 fL (80-100); MEAN CORPUSCULAR HEMOGLOBIN 29.8 pg (25-34); MEAN CORPUSCULAR HGB CONC 34.1 g/dl (32-36); MEAN PLATELET VOLUME 10.4 fL (7.4-10.4); MONO % 5.6 %; NEUT % 62.7 %; PLATELET COUNT 257 K/uL (130-400); RED BLOOD COUNT 4.73 M/uL (4.7-6.1)
[2017-03-01] MEDS ORDERED: LISI-787 PO (19:20)
[2017-03-01 19:29] LABS: PARTIAL THROMBOPLASTIN RATIO 1.1; PROTHROMBIN TIME (PATIENT) 10.7 SECONDS (9.0-12.0)
[2017-03-01 19:34] LABS: ALT/SGPT 22 U/L (12-78); BLOOD UREA NITROGEN 19 mg/dl (7-18); BUN/CREATININE RATIO 14.4 (10-20); CALCIUM 9.7 mg/dl (8.5-10.1); CARBON DIOXIDE 24 mmol/L (21-32); CHLORIDE 106 mmol/L (98-107); GLUCOSE 102 mg/dl (70-99); SODIUM 139 mmol/L (136-145)
[2017-03-01 19:39] LABS: URINE APPEARANCE CLEAR (CLEAR); URINE BILIRUBIN NEG (NEG); URINE COLOR DK YELLOW; URINE NITRITE NEG (NEG); URINE SPECIFIC GRAVITY 1.025 (1.000-1.030); UROBILINOGEN NEG (NEG)
[2017-03-01 19:39] LABS: ALKALINE PHOSPHATASE 83 U/L (45-117); AST/SGOT 14 U/L (15-37); CKMB/CK RATIO 1.5 (0-3.0)
[2017-03-01 19:42] LABS: MANUAL MICROSCOPIC REQUIRED? NO; REVIEW REQ? NO
--- NOTE | 2017-03-01 20:01 | DIAGNOSTIC IMAGING REPORT ---
ABD/PELVIS NO IV OR ORAL CONT HISTORY: 61 years-old Male pain acute generalized abdominal pain COMPARISON: CT 10/17/2015 TECHNIQUE: Multiple axial CT images of the abdomen and pelvis were obtained without contrast. A dose lowering technique was used consistent with the principals of BLANCA. FINDINGS: Minimal dependent bibasilar atelectasis. No pneumoperitoneum inferior cardiac chambers are unremarkable. Hepatomegaly with hepatic steatosis redemonstrated. Gallbladder, spleen, pancreas and right adrenal gland are unremarkable. 1.4 x 1.1 cm left adrenal adenoma is unchanged. Bilateral nonspecific perinephric limited or stranding is redemonstrated in addition to bilateral nephrolithiasis. Largest calculus on the right measures 4 mm and the largest in the left measures 2 mm. No ureteral calculi or hydronephrosis identified. Urinary bladder is partially collapsed. Prostate is unremarkable. Abdominal aorta is normal in course and caliber without aneurysm. No bulky adenopathy identified. Small duodenal diverticulum. No bowel obstruction or focal bowel wall thickening. Prior sigmoid colon resection with colocolonic anastomosis. Prior appendectomy. Prior ventral abdominal wall hernia repair. Bones appear intact. Facet arthropathy involves the lumbar spine, mild to moderate. IMPRESSION: 1. Bilateral nephrolithiasis redemonstrated without ureteral calculi or hydronephrosis. 2. Hepatomegaly with hepatic steatosis redemonstrated. 3.Prior sigmoid colon resection with colocolonic anastomosis. 4. Prior appendectomy. The above report was generated using voice recognition software. It may contain grammatical, syntax or spelling errors. Electronically signed by: Donny Clark M.D. 03/01/2017 8:00 PM Dictated Date/Time: 03/01/2017 7:55 PM
[2017-03-01] MEDS ORDERED: OXYCODONE IR HOME PACK PO ONE (20:30)
[2017-03-01] MEDS ORDERED: ONDANSETRON HOME PACK 4MG OD TAB PO ONE (20:30)
[2017-03-01 20:50] VITALS: BP 140/81; PULSE 73; O2SAT 94
== END 2017-03-01 20:51 | disposition home or self-care (01) ==
LOC: C.EDB 18:26 → C.EDC 20:51
DX: R10.30 Lower abdominal pain, unspecified (principal); I50.9 Heart failure, unspecified; E11.9 Type 2 diabetes mellitus without complications; E78.5 Hyperlipidemia, unspecified; K21.9 Gastro-esophageal reflux disease without esophagitis; M10.9 Gout, unspecified; I10 Essential (primary) hypertension; K57.92 Diverticulitis of intestine, part unspecified, without perforation or abscess without bleeding; I48.0 Paroxysmal atrial fibrillation; I47.1 Supraventricular tachycardia; Z82.49 Family history of ischemic heart disease and other diseases of the circulatory system; Z87.891 Personal history of nicotine dependence; Z79.4 Long term (current) use of insulin

== ENCOUNTER 2017-03-30 18:56 | Emergency (ER) | payer OTHER ==
[~2017-03-30] VITALS: Ht 185.4 cm; Wt 161.2 kg
[~2017-03-30 18:56] MED LIST changes: -ASPI-232 PO; +LISI-787 PO; -POTA10CA28 PO
[2017-03-30 19:08] VITALS: TEMP 36.8; Ht 185.4 cm; Wt 161.2 kg
[2017-03-30] MEDS ORDERED: SODIUM CHLORIDE 0.9% 1000ML 1,000 ML IV STA (19:18)
[2017-03-30] MEDS ORDERED: ONDANSETRON INJ 2 MG/ML 2 ML VIAL IV STA (19:18)
[2017-03-30] MEDS ORDERED: MoRPHine SULFATE 4 MG/ML 1 ML CARP\\VIAL IV PRN (19:30)
--- NOTE | 2017-03-30 19:30 | EMERGENCY ROOM VISIT NOTE ---
History Report prepared by Marianna: Vikash Pickens Under the Supervision of: Dr. Zackery Mora D.O. First contact with patient: 19:12 Chief Complaint: ABDOMINAL PAIN Stated Complaint: L SIDE PAIN History of Present Illness The patient is a 61 year old male who presents to the Emergency Room with complaints of sudden left lower abdominal pain that started about 30 minutes ago , and it has not moved. The patient states that he was out shopping when he got this sharp cutting pain. He states that lying down makes the pain worse. The patient states that he has had kidney stones in the past, though he has not had any kidney stone symptoms on his left side. The patient denies any hematuria and chest pain. He states that he has had some swelling in his legs, and he is short of breath, though he notes that he has COPD. Source of History: patient Onset: 30 minutes ago Position: abdomen (LLQ) Quality: sharp Timing: other (sudden) Associated Symptoms: + SOB, No chest pain Note: Associated symptoms: Leg swelling Review of Systems See HPI for pertinent positives & negatives. A total of 10 systems reviewed and were otherwise negative. Past Medical & Surgical Medical Problems: (1) CHF (congestive heart failure) (2) Chronic low back pain (3) Diabetes mellitus, type II (4) Diverticular disease of colon (5) Dyslipidemia (6) GERD (gastroesophageal reflux disease) (7) Gout (8) HTN (hypertension) (9) Paroxysmal atrial fibrillation (10) PSVT (paroxysmal supraventricular tachycardia) Surgical Problems: (1) H/O ventral hernia repair (2) History of appendectomy (3) History of cardiac cath (4) History of partial colectomy Family History FHx: cancer FHx: gallbladder disease Hypertension Kidney disease Kidney stones Social History Smoking Status: Former Smoker Alcohol Use: none Drug Use: none Marital Status: Housing Status: lives with significant other Occupation Status: disabled Current/Historical Medications Scheduled Allopurinol (Zyloprim), 300 MG PO QPM Furosemide (Lasix), 40 MG PO QAM Insulin Aspart 70/30 (Novolog Mix 70/30), 35 UNITS SC BID Lisinopril (Prinivil), 5 MG PO QPM Metoprolol Succinate (Toprol Xl), 50 MG PO QPM Nitroglycerin (Nitrostat), 0.4 MG UT PRN Spironolactone (Aldactone), 25 MG PO QPM Allergies Coded Allergies: BEE STING (Verified Allergy, Severe, ANAPHYLAXIS, 03/30/17) Aluminum Hydroxide (Verified Adverse Reaction, Mild, VOMITING, 03/30/17) Magnesium Hydroxide (Verified Adverse Reaction, Mild, VOMITING, 03/30/17) Simethicone (Verified Adverse Reaction, Mild, VOMITING, 03/30/17) Physical Exam Vital Signs Date Time Temp Pulse Resp B/P (MAP) Pulse Ox O2 Delivery O2 Flow Rate FiO2 03/30/17 20:59 74 20 128/67 98 Room Air 03/30/17 19:33 79 03/30/17 19:08 36.8 84 22 156/93 96 Room Air Physical Exam GENERAL: Patient is awake, alert, anxious, and uncomfortable appearing. The patient appears to be in significant pain. EYES: The conjunctivae are clear. The pupils are round and reactive. EARS, NOSE, MOUTH AND THROAT: The nose is without any evidence of any deformity. Mucous membranes are moist tongue is midline NECK: The neck is nontender and supple. RESPIRATORY: Normal respiratory effort is noted there is no evidence of wheezing rhonchi or rales CARDIOVASCULAR: Regular rate and rhythm noted there no murmurs rubs or gallops normal S1 normal S2 GASTROINTESTINAL: The abdomen moderately distended but soft. The patient is tender over the left lower quadrant. No guarding or rigidity. BACK: No midline tenderness or or step-off noted range of motion in flexion extension as well as rotation no signs of muscle spasm noted MUSCULOSKELETAL/EXTREMITIES: There is no evidence of gross deformity full range of motion is noted in the hips and shoulders SKIN: There is pedal edema bilaterally. There is no obvious evidence of any rash. There are no petechiae, pallor or cyanosis noted. NEUROLOGIC: Patient is awake alert and oriented x3 Medical Decision & Procedures ER Provider Diagnostic Interpretation: Radiology results as stated below per my review and radiologist interpretation: RENAL ULTRASOUND CLINICAL HISTORY: Left flank pain. COMPARISON STUDY: Renal ultrasound February 26, [address] of the abdomen and pelvis March 01, 2017. TECHNIQUE: Sonography of the kidneys and the urinary bladder was performed. FINDINGS: This exam is compromised by suboptimal penetration. However, there is no hydronephrosis. The right kidney measures 12.2 x 7.2 x 7.3 cm and the left measures 13.4 x 8.1 x 8.2 cm. No calculi are identified. The small bilateral renal calculi shown on prior CT are not visualized, likely due to technique. There is a 2.4 cm left ovarian cyst. Both ureteral jets were identified. Fatty infiltration of the liver was noted. IMPRESSION: 1. No hydronephrosis. 2. Study moderately compromised by suboptimal penetration. 3. Small bilateral renal calculi shown on prior CT of March 01, 2017 not visualized, possibly due to technique. 4. Fatty infiltration of the liver. Electronically signed by: Dandre Pardo M.D. 03/30/2017 8:50 PM Dictated Date/Time: 03/30/2017 8:48 PM KUB CLINICAL HISTORY: Abdominal pain. COMPARISON STUDY: KUB December 31, [address] of the abdomen and pelvis March 01, 2017. FINDINGS: A 4 mm right renal calculus is unchanged since CT of March 01, 2017. The small calculus within the upper pole of the left kidney shown on that exam is not visualized on this exam, possibly due to size. A sigmoid anastomosis is noted. There is no bowel obstruction. Pelvic calcifications were shown to represent phleboliths on prior CT. IMPRESSION: 1. No change in a 4 mm right renal calculus. Nonvisualization of the left renal calculus shown on prior CT, possibly due to small size. 2. No ureteral calculi identified. 3. No bowel obstruction. Electronically signed by: Dandre Pardo M.D. 03/30/2017 8:34 PM Dictated Date/Time: 03/30/2017 8:30 PM CHEST ONE VIEW PORTABLE CLINICAL HISTORY: Abdominal pain. COMPARISON STUDY: Chest radiograph March 01, 2017. FINDINGS: Lung volumes are normal. No pneumothorax or pleural effusion is present. Mild left basilar opacity likely reflects atelectasis. Cardiomediastinal silhouette is stable. There is no evidence of pulmonary edema. IMPRESSION: No acute cardiopulmonary findings. Electronically signed by: Dandre Pardo M.D. 03/30/2017 8:29 PM Dictated Date/Time: 03/30/2017 8:28 PM Laboratory Results 03/30/17 19:35 Red Blood Count 4.46, Mean Corpuscular Volume 88.3, Mean Corpuscular Hemoglobin 30.3, Mean Corpuscular Hemoglobin Concent 34.3, Mean Platelet Volume 10.4, Neutrophils (%) (Auto) 49.9, Lymphocytes (%) (Auto) 39.1, Monocytes (%) (Auto) 6.7, Eosinophils (%) (Auto) 3.4, Basophils (%) (Auto) 0.3, Neutrophils # (Auto) 4.83, Lymphocytes # (Auto) 3.79, Monocytes # (Auto) 0.65, Eosinophils # (Auto) 0.33, Basophils # (Auto) 0.03 03/30/17 19:35 Test 03/30/17 19:30 03/30/17 19:35 Urine Color YELLOW Urine Appearance CLEAR (CLEAR) Urine pH 6.0 (4.5-7.5) Urine Specific Worden 1.019 (1.000-1.030) Urine Protein NEG (NEG) Urine Glucose (UA) 1+ (NEG) Urine Ketones NEG (NEG) Urine Occult Blood NEG (NEG) Urine Nitrite NEG (NEG) Urine Bilirubin NEG (NEG) Urine Urobilinogen NEG (NEG) Urine Leukocyte Esterase NEG (NEG) White Blood Count 9.69 K/uL (4.8-10.8) Red Blood Count 4.46 M/uL (4.7-6.1) Hemoglobin 13.5 g/dL (14.0-18.0) Hematocrit 39.4 % (42-52) Mean Corpuscular Volume 88.3 fL (80-100) Mean Corpuscular Hemoglobin 30.3 pg (25-34) Mean Corpuscular Hemoglobin Concent 34.3 g/dl (32-36) Platelet Count 244 K/uL (130-400) Mean Platelet Volume 10.4 fL (7.4-10.4) Neutrophils (%) (Auto) 49.9 % Lymphocytes (%) (Auto) 39.1 % Monocytes (%) (Auto) 6.7 % Eosinophils (%) (Auto) 3.4 % Basophils (%) (Auto) 0.3 % Neutrophils # (Auto) 4.83 K/uL (1.4-6.5) Lymphocytes # (Auto) 3.79 K/uL (1.2-3.4) Monocytes # (Auto) 0.65 K/uL (0.11-0.59) Eosinophils # (Auto) 0.33 K/uL (0-0.5) Basophils # (Auto) 0.03 K/uL (0-0.2) RDW Standard Deviation 42.8 fL (36.4-46.3) RDW Coefficient of Variation 13.3 % (11.5-14.5) Immature Granulocyte % (Auto) 0.6 % Immature Granulocyte # (Auto) 0.06 K/uL (0.00-0.02) Anion Gap 7.0 mmol/L (3-11) Est Creatinine Clear Calc Drug Dose 95.9 ml/min Estimated GFR () 69.7 Estimated GFR (Non- 60.2 BUN/Creatinine Ratio 13.5 (10-20) Calcium Level 9.1 mg/dl (8.5-10.1) Total Bilirubin 0.3 mg/dl (0.2-1) Direct Bilirubin < 0.1 mg/dl (0-0.2) Aspartate Amino Transf (AST/SGOT) 15 U/L (15-37) Alanine Aminotransferase (ALT/SGPT) 27 U/L (12-78) Alkaline Phosphatase 114 U/L (45-117) Total Protein 7.7 gm/dl (6.4-8.2) Albumin 3.4 gm/dl (3.4-5.0) Lipase 101 U/L (73-393) Laboratory results per my review. Medications Administered Medications (Trade) Dose Ordered Sig/Tish Route Start Time Stop Time Status Last Admin Dose Admin Morphine Sulfate (MoRPHine SULFATE INJ) 4 mg Q15M PRN IV 03/30/17 19:30 03/30/17 21:50 DC 03/30/17 19:28 4 MG Ondansetron HCl (Zofran Inj) 4 mg NOW STAT IV 03/30/17 19:18 03/30/17 19:20 DC 03/30/17 19:28 4 MG ED Course 1911: The patient was evaluated in room C6. A complete history and physical examination were performed. 1917: NSS 1,000 ml @ 999 mls/hr IV, Zofran 4mg IV 1929: Morphine Sulfate 4mg IV 2126: Upon reevaluation, the patient is doing well. I discussed the results and treatment plan with him. He verbalized agreement of the treatment plan. He was discharged home. Medical Decision Differential diagnosis: Etiologies such as appendicitis, diverticulitis, PUD, biliary pathology, UTI, pancreatitis, obstruction, mesenteric ischemia, aortic pathology, infections, inflammatory bowel disease, renal colic, as well as others were entertained. Nursing notes reviewed. Patient's previous electronic medical records reviewed. The patient is a 61-year-old male who presented to the emergency department for an evaluation of flank pain. The patient has a history of kidney stones in the past. The patient felt that this was consistent with his previous kidney stones. The patient was treated with IV fluids IV pain medicine IV antiemetics. He did have significant left flank tenderness on palpation. He was feeling much better on subsequent reevaluation. The patient did not have a definite obstruction noted on ultrasound. He does not a physical exam consistent with an acute surgical abdomen although he does not have definite signs of ureteral calculus on the workup today. I discussed the patient's laboratory and radiographic studies with him. He was encouraged to rest and avoid any strenuous activity. He was also encouraged to call his family to schedule a follow-up appointment. Otherwise she was encouraged to return to the emergency department immediately if symptoms change worsen or the need arises. Medication Reconcilliation Current Medication List: was personally reviewed by me Blood Pressure Screening Patient's blood pressure: Elevated blood pressure Blood pressure disposition: Elevated BP felt to be situational Impression Primary Impression: Kidney stone Additional Impression: Left flank pain Scribe Attestation The scribe's documentation has been prepared under my direction and personally reviewed by me in its entirety. I confirm that the note above accurately reflects all work, treatment, procedures, and medical decision making performed by me. Departure Information Dispostion Home / Self-Care Referrals Adan Barker D.O. (PCP) Forms Call Back Authorization, HOME CARE DOCUMENTATION FORM, IMPORTANT VISIT INFORMATION Patient Instructions Kidney Stones, My [facility] Additional Instructions Continue all medications as prescribed. Call your family in the morning to schedule a follow-up appointment. Rest and avoid any strenuous activity. Continue using Motrin and Tylenol as directed for mild pain. Return to the emergency department immediately if symptoms change worsen or the need arises. Problem Qualifiers
[2017-03-30 19:47] LABS: URINE APPEARANCE CLEAR (CLEAR); URINE BILIRUBIN NEG (NEG); URINE COLOR YELLOW; URINE NITRITE NEG (NEG); URINE SPECIFIC GRAVITY 1.019 (1.000-1.030); UROBILINOGEN NEG (NEG)
[2017-03-30 19:49] LABS: MANUAL MICROSCOPIC REQUIRED? NO; REVIEW REQ? NO
[2017-03-30] MEDS ORDERED: LISI-729 PO (19:51)
[2017-03-30] MEDS ORDERED: SPIR25TA PO (19:51)
[2017-03-30 20:00] LABS: BASO % 0.3 %; BASO ABS # 0.03 K/uL (0-0.2); COMPLETE YES; EOS % 3.4 %; HEMATOCRIT 39.4 % (42-52); IG% 0.6 %; LYMPH % 39.1 %; LYMPH ABS # 3.79 K/uL (1.2-3.4); MEAN CELL VOLUME 88.3 fL (80-100); MEAN CORPUSCULAR HEMOGLOBIN 30.3 pg (25-34); MEAN CORPUSCULAR HGB CONC 34.3 g/dl (32-36); MEAN PLATELET VOLUME 10.4 fL (7.4-10.4); MONO % 6.7 %; NEUT % 49.9 %; PLATELET COUNT 244 K/uL (130-400); RED BLOOD COUNT 4.46 M/uL (4.7-6.1); WHITE BLOOD COUNT 9.69 K/uL (4.8-10.8)
[2017-03-30 20:23] LABS: ALT/SGPT 27 U/L (12-78); AST/SGOT 15 U/L (15-37); BLOOD UREA NITROGEN 17 mg/dl (7-18); BUN/CREATININE RATIO 13.5 (10-20); CALCIUM 9.1 mg/dl (8.5-10.1); CARBON DIOXIDE 28 mmol/L (21-32); CHLORIDE 101 mmol/L (98-107); CREATININE 1.27 mg/dl (0.60-1.40); GLUCOSE 293 mg/dl (70-99); POTASSIUM 3.8 mmol/L (3.5-5.1); SODIUM 136 mmol/L (136-145)
[2017-03-30 20:26] LABS: ALKALINE PHOSPHATASE 114 U/L (45-117)
--- NOTE | 2017-03-30 20:31 | DIAGNOSTIC IMAGING REPORT ---
CHEST ONE VIEW PORTABLE CLINICAL HISTORY: Abdominal pain. COMPARISON STUDY: Chest radiograph March 01, 2017. FINDINGS: Lung volumes are normal. No pneumothorax or pleural effusion is present. Mild left basilar opacity likely reflects atelectasis. Cardiomediastinal silhouette is stable. There is no evidence of pulmonary edema. IMPRESSION: No acute cardiopulmonary findings. Electronically signed by: Dandre Pardo M.D. 03/30/2017 8:29 PM Dictated Date/Time: 03/30/2017 8:28 PM
--- NOTE | 2017-03-30 20:36 | DIAGNOSTIC IMAGING REPORT ---
KUB CLINICAL HISTORY: Abdominal pain. COMPARISON STUDY: KUB December 31, [address] of the abdomen and pelvis March 01, 2017. FINDINGS: A 4 mm right renal calculus is unchanged since CT of March 01, 2017. The small calculus within the upper pole of the left kidney shown on that exam is not visualized on this exam, possibly due to size. A sigmoid anastomosis is noted. There is no bowel obstruction. Pelvic calcifications were shown to represent phleboliths on prior CT. IMPRESSION: 1. No change in a 4 mm right renal calculus. Nonvisualization of the left renal calculus shown on prior CT, possibly due to small size. 2. No ureteral calculi identified. 3. No bowel obstruction. Electronically signed by: Dandre Pardo M.D. 03/30/2017 8:34 PM Dictated Date/Time: 03/30/2017 8:30 PM
--- NOTE | 2017-03-30 20:51 | DIAGNOSTIC IMAGING REPORT ---
RENAL ULTRASOUND CLINICAL HISTORY: Left flank pain. COMPARISON STUDY: Renal ultrasound February 26, [address] of the abdomen and pelvis March 01, 2017. TECHNIQUE: Sonography of the kidneys and the urinary bladder was performed. FINDINGS: This exam is compromised by suboptimal penetration. However, there is no hydronephrosis. The right kidney measures 12.2 x 7.2 x 7.3 cm and the left measures 13.4 x 8.1 x 8.2 cm. No calculi are identified. The small bilateral renal calculi shown on prior CT are not visualized, likely due to technique. There is a 2.4 cm left ovarian cyst. Both ureteral jets were identified. Fatty infiltration of the liver was noted. IMPRESSION: 1. No hydronephrosis. 2. Study moderately compromised by suboptimal penetration. 3. Small bilateral renal calculi shown on prior CT of March 01, 2017 not visualized, possibly due to technique. 4. Fatty infiltration of the liver. Electronically signed by: Dandre Pardo M.D. 03/30/2017 8:50 PM Dictated Date/Time: 03/30/2017 8:48 PM
[2017-03-30 20:59] VITALS: BP 128/67; PULSE 74; O2SAT 98
== END 2017-03-30 21:39 | disposition home or self-care (01) ==
LOC: C.EDB 18:57 → C.EDC 21:39
DX: N20.0 Calculus of kidney (principal); R10.9 Unspecified abdominal pain; J44.9 Chronic obstructive pulmonary disease, unspecified; E11.9 Type 2 diabetes mellitus without complications; I11.0 Hypertensive heart disease with heart failure; E78.5 Hyperlipidemia, unspecified; K21.9 Gastro-esophageal reflux disease without esophagitis; M10.9 Gout, unspecified; I48.0 Paroxysmal atrial fibrillation; I47.1 Supraventricular tachycardia; Z87.891 Personal history of nicotine dependence; Z80.9 Family history of malignant neoplasm, unspecified; Z83.79 Family history of other diseases of the digestive system; Z82.49 Family history of ischemic heart disease and other diseases of the circulatory system; Z84.1 Family history of disorders of kidney and ureter; Z79.899 Other long term (current) drug therapy

== ENCOUNTER → 2017-04-14 | Day surgery (SDC) | payer OTHER ==
[2017-04-13 13:56] VITALS: Ht 185.4 cm; Wt 159.1 kg
[~2017-04-14] VITALS: Ht 185.4 cm; Wt 159.1 kg
[~2017-04-14] MED LIST changes: +ALBINS/ INH; +LIDOCAINE HCL 2% 2 ML VIAL (20MG/ML) ONE; +LISI-729 PO; -LISI-787 PO; +MIDAZOLAM HCL 1 MG/ML 2ML VIAL ONE; +ONDANSETRON INJ 2 MG/ML 2 ML VIAL ONE; +PROPOFOL IV EMULSION 10 MG/ML 20 ML VIAL IV ONE; +SODIUM CHLORIDE 0.9% 500ML 500 ML IV ONE; +SPIR25TA PO; +VNTHFA/IN INH
[2017-04-14 12:30] VITALS: TEMP 36.6
--- NOTE | 2017-04-14 12:58 | Endo History and Physical ---
History & Physical Date of Service: Apr 14, 2017. Chief Complaint: LLQ ABD PAIN Referring Physician: DR. REED History of Present Illness LLQ pain/hx of diverticulitis. Past Medical History Atrial Fibrillation, Diabetes, Reflux, High Cholesterol, Kidney Disease, Other Past Surgical History Hx Cardiac Surgery: Yes (HEART CATH X2, NO STENTS) Hx Internal Defibrillator: No Hx Pacemaker: No Hx Abdominal Surgery: Yes (APPY, HERNIA REPAIR X2, COLON RESECTION FOR DIVERTICULITIS) Hx of Implantable Prosthesis: No Hx Post-Op Nausea and Vomiting: No Hx Cancer Surgery: No Hx Thoracic Surgery: No Hx Orthopedic: Yes (LT ANKLE SUGERY) Hx Urinary Tract Surgery: No Family History Colon CA Social History Smoking Status: Former Smoker Hx Substance Use: No Hx Alcohol Use: No Allergies Coded Allergies: BEE STING (Verified Allergy, Severe, ANAPHYLAXIS, 04/14/17) Aluminum Hydroxide (Verified Adverse Reaction, Mild, VOMITING, 04/14/17) Magnesium Hydroxide (Verified Adverse Reaction, Mild, VOMITING, 04/14/17) Simethicone (Verified Adverse Reaction, Mild, VOMITING, 04/14/17) Current Medications Reported Home Medications Medications Dose Route/Sig Max Daily Dose Days Date Category Ventolin Hfa (Albuterol) 200 Puffs/95505 Mcg Aers 2-4 Puffs INH Q6H PRN 04/13/17 Reported Proventil 0.083% 2.5MG/3ML (Albuterol Sulf) 2.5 Mg/3 Ml Nebu 2.5 Mg INH BID-QID 04/13/17 Reported Aldactone (Spironolactone) 25 Mg Tab 25 Mg PO QPM 03/30/17 Reported Prinivil (Lisinopril) 5 Mg Tab 5 Mg PO QPM 03/30/17 Reported Novolog Mix 70/30 (Insulin Aspart Prota 70%/Aspart 30%) Susp 35 Units SC BID 09/01/16 Reported Lasix (Furosemide) 40 Mg Tab 40 Mg PO QAM 02/26/16 Reported Toprol Xl (Metoprolol Succinate) 50 Mg Tabcr 50 Mg PO QPM 06/04/15 Reported Nitrostat (Nitroglycerin) 0.4 Mg Tab 0.4 Mg UT PRN 07/11/14 Reported Zyloprim (Allopurinol) 300 Mg Tab 300 Mg PO QPM 03/23/12 Reported Vital Signs Weight (Kilograms): 159.09 Height (Feet): 6 Height (Inches): 1 Date Time Temp Pulse Resp B/P (MAP) Pulse Ox O2 Delivery O2 Flow Rate FiO2 04/14/17 12:30 36.6 73 20 149/89 (109) 93 Room Air Physical Exam General Appearance: no apparent distress Respiratory/Chest: Auscultation: breath sounds normal Cardiovascular: Heart Auscultation: RRR Abdomen: Inspection & Palpation: soft (mild LLQ tenderness), non-distended, no masses Assessment and Plan stable for colonoscopy
--- NOTE | 2017-04-14 13:30 | Discharge Instructions ---
Endoscopy Patient Instructions Date / Procedure(s) Performed Apr 14, 2017. Colonoscopy Allergy Information Coded Allergies: BEE STING (Verified Allergy, Severe, ANAPHYLAXIS, 04/14/17) Aluminum Hydroxide (Verified Adverse Reaction, Mild, VOMITING, 04/14/17) Magnesium Hydroxide (Verified Adverse Reaction, Mild, VOMITING, 04/14/17) Simethicone (Verified Adverse Reaction, Mild, VOMITING, 04/14/17) Discharge Date / Findings Apr 14, 2017. small colon polyp/left sided diverticulosis Provider Instructions Activity Restrictions - No exercising or heavy lifting for 24 hours. - Do not drink alcohol the day of the procedure. - Do not drive a car or operate machinery until the day after the procedure. - Do not make any important decisions or sign important papers in 24 hours after the procedure. Following Day: - Return to full activity which may include returning to work/school. Diet Start your diet with liquids and light foods (jello, soup, juice, toast). Then eat your usual diet if not nauseated. Treatment For Common After Affects For mild abdominal pain, bloating, or excessive gas: - Rest - Eat lightly - Lie on right side Follow-Up Information Follow-up with DR. REED as scheduled Anesthesia Information What You Should Know You have had a procedure that required some medicine to reduce anxiety and discomfort. This treatment is called moderate sedation. After receiving the treatment, you may be sleepy, but you will be able to breathe on your own. The effects of the treatment may last for several hours. Follow these instructions along with Activity/Diet recommendations noted above: * Do NOT do anything where dizziness or clumsiness would be dangerous. * Rest quietly at home today, then you can be up and about tomorrow. * Have a responsible person stay with you the rest of today. * You may have had an I.V. today. If so, you may take the dressing off later today. Recommendations Call your doctor if: * Trouble breathing * Continuous vomiting for more than 24 hours * Temperature above 101 degrees * Severe abdominal pain or bloating * Pain not relieved by pain medicine ordered * There is increased drainage or redness from any incision * A large amount of rectal bleeding greater than 2-3 tablespoons. (If you had a polyp/s removed or have hemorrhoids, a small amount of blood - from the rectum is to be expected.) * You have any unanswered questions or concerns. IN THE EVENT OF A SERIOUS EMERGENCY, GO TO THE NEAREST EMERGENCY ROOM Your discharge instructions were prepared by provider Julio C Mejia. Patient Instructions Signature Page Zain Dawn Patient (or Guardian) Signature/Date: I have read and understand the instructions given to me by my caregivers. Caregiver/RN/Doctor Signature/Date: The above-named patient and/or guardian has received patient instructions on this date. + Original Patient Signature Page (only) stays with chart. Please make copy for patient.
--- NOTE | 2017-04-14 13:31 | GI REPORT ---
Procedure Date: 04/14/2017 1:13 PM Procedure: Colonoscopy Indications: Abdominal pain in the left lower quadrant, Follow-up of diverticulitis Medicines: See the Anesthesia note for documentation of the administered medications Complications: No immediate complications. Estimated Blood Loss: Estimated blood loss was minimal. Procedure: Pre-Anesthesia Assessment: - Prior to the procedure, a History and Physical was performed, and patient medications, allergies and sensitivities were reviewed. The patient's tolerance of previous anesthesia was reviewed. - The risks and benefits of the procedure and the sedation options and risks were discussed with the patient. All questions were answered and informed consent was obtained. - Patient identification and proposed procedure were verified prior to the procedure by the physician and the nurse. The procedure was verified in the pre-procedure area. - Pre-procedure physical examination revealed no contraindications to sedation. - After reviewing the risks and benefits, the patient was deemed in satisfactory condition to undergo the procedure. After I obtained informed consent, the scope was passed under direct vision. Throughout the procedure, the patient's blood pressure, pulse, and oxygen saturations were monitored continuously. The scope was introduced through the anus and advanced to the cecum, identified by appendiceal orifice and ileocecal valve. The colonoscopy was performed without difficulty. The patient tolerated the procedure well. The quality of the bowel preparation was fair. Findings: The perianal and digital rectal examinations were normal. Many small-mouthed diverticula were found in the sigmoid colon and in the descending colon. A diminutive polyp was found in the ascending colon. The polyp was sessile. The polyp was removed with a jumbo cold forceps. Resection and retrieval were complete. Verification of patient identification for the specimen was done by the physician and nurse using the patient's name and medical record number. Estimated blood loss was minimal. There was evidence of a prior end-to-end colo-colonic anastomosis at 20 cm proximal to the anus. This was characterized by healthy appearing mucosa. No additional abnormalities were found on retroflexion. Impression: - Diverticulosis in the sigmoid colon and in the descending colon. - One diminutive polyp in the ascending colon, removed with a jumbo cold forceps. Resected and retrieved. - End-to-end colo-colonic anastomosis, characterized by healthy appearing mucosa. Recommendation: - Await pathology results. - Discharge patient to home. Julio C Mejia M.D. Julio C Mejia MD 04/14/2017 1:30:24 PM This report has been signed electronically. Note Initiated On: 04/14/2017 1:13 PM I attest to the content of the Intraoperative Record and orders documented therein, exceptions below
--- NOTE | 2017-04-14 13:46 | Anesthesiology Progress Note ---
Anesthesia Post Op Note Date & Time Apr 14, 2017 at 13:46 Vital Signs Pain Intensity: 6 Vital Signs Past 12 Hours Date Time Temp Pulse Resp B/P (MAP) Pulse Ox O2 Delivery O2 Flow Rate FiO2 04/14/17 13:32 76 20 127/84 (98) 95 Room Air 04/14/17 12:30 36.6 73 20 149/89 (109) 93 Room Air Notes Mental Status: alert / awake / arousable, participated in evaluation Pt Amnestic to Procedure: Yes Nausea / Vomiting: adequately controlled Pain: adequately controlled Airway Patency, RR, SpO2: stable & adequate BP & HR: stable & adequate Hydration State: stable & adequate Anesthetic Complications: no major complications apparent
[2017-04-14 14:02] VITALS: BP 130/90; PULSE 69; O2SAT 97
== END | disposition home or self-care (01) ==
LOC: C.GI 12:09
PROVIDERS: ATTEND Internal Medicine Gastroenterology
DX: D12.2 Benign neoplasm of ascending colon (principal); R10.32 Left lower quadrant pain; K57.90 Diverticulosis of intestine, part unspecified, without perforation or abscess without bleeding; K63.89 Other specified diseases of intestine; I48.91 Unspecified atrial fibrillation; E11.9 Type 2 diabetes mellitus without complications; E78.5 Hyperlipidemia, unspecified; I10 Essential (primary) hypertension; I48.0 Paroxysmal atrial fibrillation; Z79.4 Long term (current) use of insulin

== ENCOUNTER → 2017-06-15 | Outpatient (CLI) | payer OTHER ==
[~2017-06-15] MED LIST changes: -LIDOCAINE HCL 2% 2 ML VIAL (20MG/ML) ONE; -MIDAZOLAM HCL 1 MG/ML 2ML VIAL ONE; -ONDANSETRON INJ 2 MG/ML 2 ML VIAL ONE; -PROPOFOL IV EMULSION 10 MG/ML 20 ML VIAL IV ONE; -SODIUM CHLORIDE 0.9% 500ML 500 ML IV ONE
--- NOTE | 2017-06-15 14:06 | DIAGNOSTIC IMAGING REPORT ---
THORACIC SPINE WITHOUT HISTORY: Pain LT THORACIC PAIN TECHNIQUE: Multiplanar multisequence MRI of the thoracic spine was performed without the use of contrast. COMPARISON: None. FINDINGS: Alignment and curvature are intact. No fracture or subluxation. No significant central canal or neural foraminal narrowing. Minimal disc bulges at T2-T3, T4-T5, and T11-T12. No significant compromise of the spinal canal or neural foramina. Moderate degenerative disc changes throughout. No evidence for compression deformity. IMPRESSION: 1. Moderate degenerative disc change throughout the entire thoracic region. 2. Several slight disc bulges with no major impact with the thoracic cord or neural foramina. The above report was generated using voice recognition software. It may contain grammatical, syntax or spelling errors. Electronically signed by: Casey Miguel M.D. 06/15/2017 2:05 PM Dictated Date/Time: 06/15/2017 2:03 PM
== END | disposition home or self-care (01) ==
LOC: C.MRI 12:53
PROVIDERS: ATTEND Pain Medicine Interventional Pain Medicine
DX: M54.14 Radiculopathy, thoracic region (principal); M51.34 Other intervertebral disc degeneration, thoracic region; M51.24 Other intervertebral disc displacement, thoracic region

== ENCOUNTER 2018-01-18 10:21 | Emergency (ER) | payer OTHER ==
[~2018-01-18] VITALS: Ht 185.4 cm; Wt 148.5 kg
[2018-01-18 10:37] VITALS: TEMP 36.5; Ht 185.4 cm; Wt 148.5 kg
[2018-01-18] MEDS ORDERED: DEXAMETHASONE SOD INJ 4 MG/ML 5 ML VIAL IM STA (11:08)
[2018-01-18] MEDS ORDERED: KETOROLAC TROMETHAMINE 60 MG/2 ML VIAL IM STA (11:08)
[2018-01-18] MEDS ORDERED: DEXAMETHASONE SOD INJ 10 MG/ML VIAL ONE (11:26)
[2018-01-18] MEDS ORDERED: OXYC-737 PO (11:43)
[2018-01-18] MEDS ORDERED: METH4PAK PO (11:43)
[2018-01-18] MEDS ORDERED: DICL75TA2 PO (11:43)
--- NOTE | 2018-01-18 11:45 | EMERGENCY ROOM VISIT NOTE ---
History First contact with patient: 10:47 Chief Complaint: HIP PAIN Stated Complaint: HIP AND LEG PAIN History of Present Illness The patient is a 62 year old male who presents to the Emergency Room with complaints of left hip and leg pain. Patient states that the pain started a few days ago but increased today. He took 3 ibuprofen without any relief. The patient also has a history of peripheral edema for which he is on Lasix. The patient denies any known injury to his left hip. The patient does also admit to chronic low back pain but this is more in the hip area. The patient does admit to some pain radiating down his left leg. The patient denies any saddle anesthesia or loss of bowel or bladder control. The patient has not seen any orthopedics in the past. Review of Systems 10 system review was performed and was negative unless stated otherwise history of present illness. Past Medical/Surgical History Medical Problems: (1) CHF (congestive heart failure) (2) Chronic low back pain (3) Diabetes mellitus, type II (4) Diverticular disease of colon (5) Dyslipidemia (6) GERD (gastroesophageal reflux disease) (7) Gout (8) HTN (hypertension) (9) Paroxysmal atrial fibrillation (10) PSVT (paroxysmal supraventricular tachycardia) Surgical Problems: (1) H/O ventral hernia repair (2) History of appendectomy (3) History of cardiac cath (4) History of partial colectomy Family History FHx: cancer FHx: gallbladder disease Hypertension Kidney disease Kidney stones Social History Smoking Status: Former Smoker Alcohol Use: none Drug Use: none Marital Status: Housing Status: lives with significant other Occupation Status: disabled Current/Historical Medications Scheduled Albuterol Sulf (Proventil 0.083% 2.5MG/3ML), 2.5 MG INH BID-QID Allopurinol (Zyloprim), 300 MG PO QPM Furosemide (Lasix), 80 MG PO QAM Insulin Aspart 70/30 (Novolog Mix 70/30), 35 UNITS SC BID Lisinopril (Prinivil), 5 MG PO QPM Nitroglycerin (Nitrostat), 0.4 MG UT PRN Scheduled PRN Albuterol Hfa (Ventolin Hfa), 2-4 PUFFS INH Q6H PRN for SOB/Wheezing Physical Exam Vital Signs Date Time Temp Pulse Resp B/P (MAP) Pulse Ox O2 Delivery O2 Flow Rate FiO2 8/20/18 10:37 36.5 80 16 141/62 97 Room Air Physical Exam GENERAL: 62-year-old obese white male appears uncomfortable secondary to hip pain. He is lying on his right side on the stretcher. MENTAL Status: Alert and oriented 3. NECK: Supple, no lymphadenopathy noted. No carotid bruits noted. LUNGS: Clear auscultation without wheezes rales or rhonchi. CARDIAC: Regular rate and rhythm without murmur. Pulses is full and equal throughout. ABDOMEN: Positive bowel sounds all 4 quadrants. Soft, nontender to palpation difficult to evaluate for organomegaly or masses secondary to patient size. LEFT HIP: No gross bony deformity noted. No erythema or edema noted. The patient is point tenderness to palpation over the greater trochanter. Limited range of motion secondary to pain. LOWER EXTREMITIES: 1-2+ pitting edema bilaterally. No erythema noted. No cyanosis no edema Medical Decision & Procedures Medications Administered Medications (Trade) Dose Ordered Sig/Tish Route Start Time Stop Time Status Last Admin Dose Admin Ketorolac Tromethamine (Toradol Inj) 60 mg NOW STAT IM 01/18/18 11:08 01/18/18 11:09 DC 01/18/18 11:33 60 MG Dexamethasone Sodium Phosphate (Decadron Inj) 10 mg STK-MED ONCE .ROUTE 01/18/18 11:26 01/18/18 11:27 DC 01/18/18 11:32 10 MG ED Course The patient was evaluated. The patient was given Toradol 60 mg IM and Decadron 10 mg IM. The patient was reevaluated was feeling slightly better. The patient was discharged home in stable condition. Medical Decision Differential diagnosis include radiculopathy, hip fracture, trochanteric bursitis [place] Drug Monitoring Program Search Results: patient reviewed within database Medication Reconcilliation Current Medication List: was personally reviewed by mt Blood Pressure Screening Patient's blood pressure: Elevated blood pressure Blood pressure disposition: Elevated BP felt to be situational Impression Primary Impression: Trochanteric bursitis of left hip Departure Information Dispostion Home / Self-Care Condition GOOD Prescriptions Diclofenac Sodium (VOLTAREN) 75 Mg Tab 75 MG PO BID for 10 Days, #20 TAB Prov: Nhung Miguel, PAArnav 01/18/18 Oxycodone Immediate Rel Tab (ROXICODONE IR) 5 Mg Tab 1-2 TAB PO Q4H Y for Pain, #15 TAB Prov: Nhung Miguel PA-C 01/18/18 Methylprednisolone (MEDROL DOSEPAK) 4 Mg Jose 0 PO DAILY, #1 PKT Prov: Nhung Miguel PA-C 01/18/18 Referrals Adan Barker D.O. (PCP) Forms HOME CARE DOCUMENTATION FORM, IMPORTANT VISIT INFORMATION, WORK / SCHOOL INSTRUCTIONS Patient Instructions ED Bursitis, My [facility] Additional Instructions Take Voltaren as prescribed. Do not take additional ibuprofen/Aleve/Motrin in addition to the Voltaren. Start Medrol Dosepak tomorrow. Take OxyIR as needed for additional pain relief. Do not drive while taking the OxyIR. Call [facility] today for follow-up appointment.
[2018-01-18 11:57] VITALS: BP 140/64; PULSE 77; O2SAT 97
--- NOTE | 2018-01-18 12:50 | Pharmacy Progress Note ---
ED Pharmacist Progress Note Date of Service: Jan 18, 2018. received phone call from [facility] pharmacy requesting dx and clarification of oxy ir Rx. gave h dx of bursitis to fulfill requirements for initial opiate rx filling. [facility] also requested change in rx directions to 1-2 tabs q 6 hrs prn pain not to exceed 6 tablets in 24 hrs. nory andrews gave verbal authorization for this change in rx. rx will be filled w/ new directions.
== END 2018-01-18 11:57 | disposition home or self-care (01) ==
LOC: C.EDB 10:24
DX: M70.62 Trochanteric bursitis, left hip (principal); I50.9 Heart failure, unspecified; E11.9 Type 2 diabetes mellitus without complications; E78.5 Hyperlipidemia, unspecified; K21.9 Gastro-esophageal reflux disease without esophagitis; I10 Essential (primary) hypertension; M10.9 Gout, unspecified; I48.91 Unspecified atrial fibrillation; I47.1 Supraventricular tachycardia; Z87.891 Personal history of nicotine dependence; Z79.4 Long term (current) use of insulin